=== PATIENT | male | born 1975 | race Caucasian/White ===

== ENCOUNTER 2017-11-27 20:57 | Observation (INO) | payer OTHER ==
[2017-11-27 21:00] VITALS: BMI 23.6
[2017-11-27] MEDS ORDERED: Sodium Chloride 0.9% 1,000 ML IV STA ×2 (21:24→22:04)
[2017-11-27] MEDS ORDERED: Famotidine 20mg/50ml 20 MG in Premixed IV 50 EA IVPB STA (21:28)
[2017-11-27] MEDS ORDERED: Famotidine 20mg/50ml 20 MG/50 ML BAG IVPB ONE (21:45)
[2017-11-27 21:53] LABS: BASO # 0.01 K/mm3 (0.0-2.0); BASO % 0.1 % (0.0-3.0); GRAN # 6.52 (1.4-6.5); GRAN % 85.1 % (50.0-68.0); HEMOGLOBIN 13.7 g/dL (14.0-18.0); LYMPH # 0.5 (1.2-3.4); MEAN CELL VOLUME 85.7 fl (80.0-105.0); MEAN CORPUSCULAR HEMOGLOBIN 30.6 pg (25.0-35.0); MEAN CORPUSCULAR HGB CONC 35.8 g/dl (31.0-37.0); MONO # 0.6 (0.1-0.6); MONO % 7.8 % (1.0-6.0); RBC 4.47 10^6/uL (3.5-6.1); RED CELL DISTRIBUTION WIDTH 12.2 % (11.5-14.5); WHITE BLOOD COUNT 7.7 10^3/ul (4.5-11.0)
[2017-11-27 22:03] LABS: ALB/GLOB RATIO 1.5 (1.1-1.8); ALBUMIN 4.6 g/dL (3.0-4.8); ALT/SGPT 34 U/L (7-56); AST/SGOT 23 U/L (17-59); BLOOD UREA NITROGEN 18 mg/dL (7-21); GFR AFRICAN-AMERICAN > 60; GFR NON-AFRICAN AMERICAN > 60; LIPASE 53 U/L (23-300)
--- NOTE | 2017-11-27 22:03 | ED PDOC ---
Arrival/HPI - General Chief Complaint: Altered Mental Status Time Seen by Provider: 11/27/17 21:24 Historian: Patient - History of Present Illness Narrative History of Present Illness (Text): 11/27/17 22:00 A 42 year old male, with no significant past medical history, presents to the emergency department with a complaint of sudden onset abdominal pimentel, vomiting, diarrhea, headache and photophobia. The patient notes that his symptoms began after he ate a meat dish this afternoon with onions and mushrooms. He notes that the vomitus is non bloody/ non-bilious. The patient denies fevers, chills, dizziness, chest pain, shortness of breath, dyspnea on exertion, cough, back pain, neck pain, urinary/bowel changes, or any other complaint. Time/Duration: Other (Today) Symptom Onset: Sudden Symptom Course: Unchanged Activities at Onset: Rest, Light Context: Home Past Medical History - Provider Review Nursing Documentation Reviewed: Yes - Cardiac Hx Cardiac Disorders: No - Pulmonary Hx Respiratory Disorders: No - Neurological Hx Neurological Disorder: No - HEENT Hx HEENT Disorder: No - Renal Hx Renal Disorder: No - Endocrine/Metabolic Hx Endocrine Disorders: No - Hematological/Oncological Hx Blood Disorders: No - Integumentary Hx Dermatological Disorder: No - Musculoskeletal/Rheumatological Hx Musculoskeletal Disorders: Yes Hx Arthritis: Yes - Gastrointestinal Hx Gastrointestinal Disorders: No - Genitourinary/Gynecological Hx Genitourinary Disorders: No - Psychiatric Hx Psychophysiologic Disorder: Yes Hx Anxiety: Yes (NO MED) Hx Substance Use: No - Anesthesia Hx Anesthesia: Yes Hx Anesthesia Reactions: No Hx Malignant Hyperthermia: No (UNKNOWN) Family/Social History - Physician Review Nursing Documentation Reviewed: Yes Family/Social History: No Known Family HX Smoking Status: Current Some Days Smoker Hx Alcohol Use: No Hx Substance Use: No Allergies/Home Meds Allergies/Adverse Reactions: Allergies No Known Allergies Allergy (Verified 02/26/16 15:56) Home Medications: Home Meds Medication Instructions Recorded Confirmed Aspirin [Ecotrin] 81 mg PO DAILY 07/24/16 11/27/17 Omeprazole 40 mg PO DAILY 07/24/16 11/27/17 Rosuvastatin Calcium [Crestor] 20 mg PO DAILY 07/24/16 11/27/17 Review of Systems - Physician Review All systems were reviewed & negative as marked: Yes - Review of Systems Constitutional: absent: Fevers, Night Sweats Eyes: Photophobia Respiratory: absent: SOB, Cough Cardiovascular: absent: Chest Pain, KEMP Gastrointestinal: Abdominal Pain, Diarrhea, Nausea, Vomiting. absent: Stool Changes Genitourinary Male: absent: Urinary Output Changes Musculoskeletal: absent: Back Pain, Neck Pain Neurological: Headache. absent: Dizziness Physical Exam Vital Signs Reviewed: Yes Vital Signs Temp Pulse Resp BP Pulse Ox 11/27/17 22:17 121 H 17 107/69 98 11/27/17 20:58 100 F H 134 H 20 94/71 L 97 Temperature: Febrile Blood Pressure: Hypotensive Pulse: Tachycardic Respiratory Rate: Normal Appearance: Positive for: Well-Appearing, Non-Toxic, Comfortable Pain Distress: None Mental Status: Positive for: Alert and Oriented X 3 - Systems Exam Head: Present: Atraumatic, Normocephalic Pupils: Present: PERRL Extroacular Muscles: Present: EOMI Conjunctiva: Present: Normal Mouth: Present: Moist Mucous Membranes Neck: Present: Normal Range of Motion Respiratory/Chest: Present: Clear to Auscultation, Good Air Exchange. No: Respiratory Distress, Accessory Muscle Use Cardiovascular: Present: Regular Rate and Rhythm, Normal S1, S2. No: Murmurs Abdomen: No: Tenderness, Distention, Peritoneal Signs Back: Present: Normal Inspection Upper Extremity: Present: Normal Inspection. No: Cyanosis, Edema Lower Extremity: Present: Normal Inspection. No: Edema Neurological: Present: GCS=15, CN II-XII Intact, Speech Normal Skin: Present: Warm, Dry, Normal Color. No: Rashes Psychiatric: Present: Alert, Oriented x 3, Normal Insight, Normal Concentration Medical Decision Making ED Course and Treatment: 11/27/17 22:04 Impression: A 42 year old male presents to the emergency department with complaint of sudden onset abdominal pain, nausea, vomiting, diarrhea, headache and photophobia. Plan: -- Labs -- Tylenol, Zofran, IV Fluids, Pepcid -- Reassess and disposition Progress Notes: Pt continues to have headache and photophobia. Pt had sudden onset of headache less than 6 hours. I will order a ct brain to rule bleed. Endorsed to Dr Elliott to follow up labs, ct head, cxr and reassess. - Lab Interpretations Lab Results: 11/27/17 21:18 11/27/17 21:18 Lab Results 11/27/17 21:18: Sodium 139, Potassium 3.7, Chloride 103, Carbon Dioxide 23, Anion Gap 17, BUN 18, Creatinine 0.9, Est GFR ( Amer) > 60, Est GFR (Non- Af Amer) > 60, Random Glucose 112 H, Calcium 9.0, Magnesium 1.6 L, Total Bilirubin 0.5, AST 23, ALT 34, Alkaline Phosphatase 69, Total Protein 7.6, Albumin 4.6, Globulin 3.0, Albumin/Globulin Ratio 1.5, Lipase 53 11/27/17 21:18: PT 11.9, INR 1.00, APTT 25.0 L 11/27/17 21:18: WBC 7.7 D, RBC 4.47, Hgb 13.7 L, Hct 38.3 L, MCV 85.7, MCH 30.6 , MCHC 35.8, RDW 12.2, Plt Count 200, MPV 9.0, Gran % 85.1 H, Lymph % (Auto) 7.0 L, [place] % (Auto) 7.8 H, Eos % (Auto) 0.0 L, Baso % (Auto) 0.1, Gran # 6.52 H , Lymph # (Auto) 0.5 L, [place] # (Auto) 0.6, Eos # (Auto) 0.0, Baso # (Auto) 0.01 I have reviewed the lab results: Yes - RAD Interpretation Radiology Orders: 11/27/17 22:34 HEAD W/O CONTRAST [CT] Stat - Medication Orders Current Medication Orders: Sodium Chloride (Sodium Chloride 0.9%) 1,000 mls @ 999 mls/hr IV .Q1H1M STA Stop: 11/27/17 23:04 Discontinued Medications Acetaminophen (Tylenol 325mg Tab) 975 mg PO STAT STA Stop: 11/27/17 21:53 Last Admin: 11/27/17 22:06 Dose: 975 mg Sodium Chloride (Sodium Chloride 0.9%) 1,000 mls @ 999 mls/hr IV .Q1H1M STA Stop: 11/27/17 22:24 Last Admin: 11/27/17 21:46 Dose: 999 mls/hr eMAR Start Stop Document 11/27/17 21:46 IT (Rec: 11/27/17 21:46 IT [id number]) Intravenous Solution Start Date 11/27/17 Start Time 21:46 Famotidine 20 mg/ (Miscellaneous) 50 mls @ 100 mls/hr IVPB STAT STA Stop: 11/27/17 21:57 Last Admin: 11/27/17 21:46 Dose: 100 mls/hr eMAR Start Stop Document 11/27/17 21:46 IT (Rec: 11/27/17 21:46 IT [id number]) Intravenous Solution Start Date 11/27/17 Start Time 21:46 Ondansetron HCl (Zofran Inj) 4 mg IVP STAT STA Stop: 11/27/17 21:25 Last Admin: 11/27/17 21:46 Dose: 4 mg IVP Administration Document 11/27/17 21:46 IT (Rec: 11/27/17 21:46 IT [id number]) Charges for Administration # of IVP Administrations 1 - Scribe Statement The provider has reviewed the documentation as recorded by the Jethroiblauren Monge Provider Scribe Attestation: All medical record entries made by the Scribe were at my direction and personally dictated by me. I have reviewed the chart and agree that the record accurately reflects my personal performance of the history, physical exam, medical decision making, and the department course for this patient. I have also personally directed, reviewed, and agree with the discharge instructions and disposition. Disposition/Present on Arrival - Present on Arrival Any Indicators Present on Arrival: No History of DVT/PE: No History of Uncontrolled Diabetes: No Urinary Catheter: No History of Decub. Ulcer: No History Surgical Site Infection Following: None - Disposition Have Diagnosis and Disposition been Completed?: No Diagnosis: Acute gastroenteritis Disposition Time: 22:52 Condition: STABLE Discharge Instructions (ExitCare): Gastroenteritis (DC), Gastroenteritis (GEN) Referrals: Kenan Couch MD [Primary Care Provider] - Follow up with primary Forms: [facility] (formerly [facility]) ([place]ian)
[2017-11-27 22:11] LABS: PROTHROMBIN TIME 11.9 SECONDS (9.4-12.5)
[2017-11-27 23:10] LABS: VENOUS BLOOD GAS BASE EXCESS 1.4 mmol/L (0.0-2.0); VENOUS BLOOD GAS PO2 182 mm/Hg (30-55); VENOUS BLOOD PH 7.46 (7.32-7.43)
--- NOTE | 2017-11-27 23:39 | ED PDOC ---
Physical Exam Vital Signs Temp Pulse Resp BP Pulse Ox 11/27/17 23:49 111 H 17 104/64 98 11/27/17 22:17 121 H 17 107/69 98 11/27/17 20:58 100 F H 134 H 20 94/71 L 97 Medical Decision Making ED Course and Treatment: 11/27/17 23:02 Case endorsed to me by Dr. Espitia. Patient with a history of sudden onset vomiting, headache, and abdominal discomfort. Patient apparently had eaten a meat dish earlier. Patient also with a period of unresponsiveness according to the family. No history of fever. Patient currently states he is feeling better. Denies any abdominal pain or headache currently. Pending CT Head. EXAM: CT Head Without Intravenous Contrast Dictated and Authenticated by: Juan Carlos Stevenson MD 11/27/2017 11:20 PM IMPRESSION: No significant injury noted to the patient's head. No acute intracranial findings are seen. 11/27/17 23:30 CXR Impression: As read by me, no acute process. 11/27/17 23:49 Patient improved but still mild tachycardia.Case discussed with Supervisor [employer] and Dr. Kirkland who is aware and agrees with the plan to admit to tele observation. Accepts patient into hospitalist service. - Lab Interpretations Lab Results: 11/27/17 21:18 11/27/17 21:18 Lab Results 11/27/17 22:54: pO2 182 H, VBG pH 7.46 H, VBG pCO2 35.0 L, VBG HCO3 24.9, VBG Total CO2 26.0, VBG O2 Sat (Calc) 99.8 H, VBG Base Excess 1.4, VBG Potassium 4.0 , Glucose 113 H, Lactate 2.0, FiO2 21.0, Sodium 138.0, Chloride 105.0, Venous Blood Potassium 4.0 11/27/17 21:18: Sodium 139, Potassium 3.7, Chloride 103, Carbon Dioxide 23, Anion Gap 17, BUN 18, Creatinine 0.9, Est GFR ( Amer) > 60, Est GFR (Non- Af Amer) > 60, Random Glucose 112 H, Calcium 9.0, Magnesium 1.6 L, Total Bilirubin 0.5, AST 23, ALT 34, Alkaline Phosphatase 69, Total Protein 7.6, Albumin 4.6, Globulin 3.0, Albumin/Globulin Ratio 1.5, Lipase 53 11/27/17 21:18: PT 11.9, INR 1.00, APTT 25.0 L 11/27/17 21:18: WBC 7.7 D, RBC 4.47, Hgb 13.7 L, Hct 38.3 L, MCV 85.7, MCH 30.6 , MCHC 35.8, RDW 12.2, Plt Count 200, MPV 9.0, Gran % 85.1 H, Lymph % (Auto) 7.0 L, [place] % (Auto) 7.8 H, Eos % (Auto) 0.0 L, Baso % (Auto) 0.1, Gran # 6.52 H , Lymph # (Auto) 0.5 L, [place] # (Auto) 0.6, Eos # (Auto) 0.0, Baso # (Auto) 0.01 - RAD Interpretation Radiology Orders: 11/27/17 22:34 HEAD W/O CONTRAST [CT] Stat 11/27/17 22:54 CHEST PORTABLE [RAD] Stat - Medication Orders Current Medication Orders: Discontinued Medications Acetaminophen (Tylenol 325mg Tab) 975 mg PO STAT STA Stop: 11/27/17 21:53 Last Admin: 11/27/17 22:06 Dose: 975 mg Sodium Chloride (Sodium Chloride 0.9%) 1,000 mls @ 999 mls/hr IV .Q1H1M STA Stop: 11/27/17 22:24 Last Admin: 11/27/17 21:46 Dose: 999 mls/hr eMAR Start Stop Document 11/27/17 21:46 IT (Rec: 11/27/17 21:46 IT [id number]) Intravenous Solution Start Date 11/27/17 Start Time 21:46 Famotidine 20 mg/ (Miscellaneous) 50 mls @ 100 mls/hr IVPB STAT STA Stop: 11/27/17 21:57 Last Admin: 11/27/17 21:46 Dose: 100 mls/hr eMAR Start Stop Document 11/27/17 21:46 IT (Rec: 11/27/17 21:46 IT [id number]) Intravenous Solution Start Date 11/27/17 Start Time 21:46 Sodium Chloride (Sodium Chloride 0.9%) 1,000 mls @ 999 mls/hr IV .Q1H1M STA Stop: 11/27/17 23:04 Last Admin: 11/27/17 23:05 Dose: 999 mls/hr eMAR Start Stop Document 11/27/17 23:05 IT (Rec: 11/27/17 23:05 IT [id number]) Intravenous Solution Start Date 11/27/17 Start Time 23:05 Ondansetron HCl (Zofran Inj) 4 mg IVP STAT STA Stop: 11/27/17 21:25 Last Admin: 11/27/17 21:46 Dose: 4 mg IVP Administration Document 11/27/17 21:46 IT (Rec: 11/27/17 21:46 IT [id number]) Charges for Administration # of IVP Administrations 1 - Scribe Statement The provider has reviewed the documentation as recorded by the Ira Hoffman Provider Scribe Attestation: All medical record entries made by the Scribe were at my direction and personally dictated by me. I have reviewed the chart and agree that the record accurately reflects my personal performance of the history, physical exam, medical decision making, and the department course for this patient. I have also personally directed, reviewed, and agree with the discharge instructions and disposition. Disposition/Present on Arrival - Present on Arrival Any Indicators Present on Arrival: No History of DVT/PE: No History of Uncontrolled Diabetes: No Urinary Catheter: No History of Decub. Ulcer: No History Surgical Site Infection Following: None - Disposition Have Diagnosis and Disposition been Completed?: Yes Diagnosis: Acute gastroenteritis, Syncope, Tachycardia Disposition: HOSPITALIZED Disposition Time: 23:52 Patient Problems: Current Active Problems Problem Status Onset Acute gastroenteritis Acute Syncope Acute Tachycardia Acute Condition: STABLE
[2017-11-27 23:51] LABS: URINE BILIRUBIN NEGATIVE (NEGATIVE); URINE BLOOD NEGATIVE (NEGATIVE); URINE GLUCOSE (UA) NEGATIVE (NEGATIVE); URINE LEUKOCYTE ESTERASE NEGATIVE Leu/uL (NEGATIVE); URINE PROTEIN NEGATIVE mg/dL (<30 mg/dL); URINE UROBILINOGEN 0.2 E.U./dL (<1 E.U./dL)
[2017-11-27 23:56] LABS: URINE APPEARANCE CLEAR (CLEAR); URINE COLOR YELLOW (YELLOW)
[2017-11-28] MEDS ORDERED: Magnesium Sulfate 1 gm in D5W 1 GM/100 ML BAG IVPB ONE (00:14)
[2017-11-28 01:25] LABS: BARBITURATES, UR NEGATIVE (NEGATIVE); BENZODIAZEPINES, UR NEGATIVE (NEGATIVE); OPIATES, UR NEGATIVE (NEGATIVE); PHENCYCLIDINE, UR NEGATIVE (NEGATIVE)
--- NOTE | 2017-11-28 02:26 | CP.PCM.HP ---
<Jean Pierre Rodríguez - Last Filed: 11/28/17 03:48> History of Present Illness - History of Present Illness History of Present Illness: Jean Pierre Rodríguez DO, PGY-1 Hospitalist Admission History and Physical for Dr. Kirkland CC: abdominal pain with nausea/vomiting HPI: Mr. Amezquita is a 42 year old male with PMH of HLD, chronic gastritis (EGD with biopsy in July 2016 who presented to ED for abdominal pain with nausea/ vomiting for the past day. Per ED note, patient's family states that he had a period of unresponsiveness this afternoon. Prior to this, he felt very nauseated and vomited at least twice. He also admits to feeling hot prior to the period of unresponsiveness. His family denies that he had any sudden jerking movements or bowel/bladder incontinence during this episode. He was found to have continued sinus tachycardia in the ED. Patient admits to having a worsening headache that is sensitive to light but states that this photosensitivity is not a new issue. He also endorses chills, neck pain. He denies fever, night sweats, chest pain, SOB, cough. Patient has a history of chronic gastritis with EGD done in July 2016. This is managed with omeprazole. PMD: Dr. Kenan Couch MD PMH: HLD, chronic gastritis PSH: had prostatectomy in [place] for enlarged prostate, EGD for chronic gastritis in July 2016 Allergies: NKDA Fam Hx: mother had cancer Home medications: Crestor 20 daily, Aspirin 81 daily, omeprazole 40 mg daily Soc Hx: Current some day smoker, denies alcohol or drug use. Currently works at a gas station Present on Admission - Present on Admission Any Indicators Present on Admission: No History of DVT/PE: No History of Uncontrolled Diabetes: No Urinary Catheter: No Decubitus Ulcer Present: No Review of Systems - Review of Systems Review of Systems: A 12 point ROS was reviewed with patient and negative except as stated in HPI Past Patient History - Past Social History Smoking Status: Current Some Days Smoker - CARDIAC Hx Cardiac Disorders: No - PULMONARY Hx Respiratory Disorders: No - NEUROLOGICAL Hx Neurological Disorder: No - HEENT Hx HEENT Problems: No - RENAL Hx Chronic Kidney Disease: No - ENDOCRINE/METABOLIC Hx Endocrine Disorders: No - HEMATOLOGICAL/ONCOLOGICAL Hx Blood Disorders: No - INTEGUMENTARY Hx Dermatological Problems: No - MUSCULOSKELETAL/RHEUMATOLOGICAL Hx Musculoskeletal Disorders: Yes Hx Arthritis: Yes - GASTROINTESTINAL Hx Gastrointestinal Disorders: No - GENITOURINARY/GYNECOLOGICAL Hx Genitourinary Disorders: No - PSYCHIATRIC Hx Psychophysiologic Disorder: Yes Hx Anxiety: Yes (NO MED) Hx Substance Use: No - SURGICAL HISTORY Hx Surgeries: Yes Hx Herniorrhaphy: Yes (BILATERAL L/R INGUINAL HERNIA) - ANESTHESIA Hx Anesthesia: Yes Hx Anesthesia Reactions: No Hx Malignant Hyperthermia: No (UNKNOWN) Meds Allergies/Adverse Reactions: Allergies Allergy/AdvReac Type Severity Reaction Status Date / Time No Known Allergies Allergy Verified 02/26/16 15:56 Physical Exam - Constitutional Additional comments: In general, Mr. Amezquita appears uncomfortable, but is a/o x 3 - Head Exam Head Exam: ATRAUMATIC, NORMAL INSPECTION, NORMOCEPHALIC - Eye Exam Eye Exam: Normal appearance, PERRL - ENT Exam ENT Exam: Mucous Membranes Moist - Neck Exam Neck exam: Positive for: Tenderness. Negative for: Lymphadenopathy, Thyromegaly Additional comments: Negative Kernig sign but tenderness to palpation - Respiratory Exam Respiratory Exam: Clear to Auscultation Bilateral, NORMAL BREATHING PATTERN. absent: Accessory Muscle Use, Chest Wall Tenderness, Rales, Rhonchi, Wheezes - Cardiovascular Exam Cardiovascular Exam: Tachycardia, +S1, +S2. absent: Diastolic murmur, Gallop, Rubs, Systolic Murmur - GI/Abdominal Exam GI & Abdominal Exam: Tenderness. absent: Guarding, Organomegaly, Rebound Additional comments: Tenderness to palpation greatest in left lower and right lower quadrant - Extremities Exam Extremities exam: Positive for: normal inspection, pedal pulses present. Negative for: calf tenderness, pedal edema, tenderness - Back Exam Back exam: NORMAL INSPECTION - Neurological Exam Neurological exam: Alert, CN II-XII Intact, Oriented x3 - Psychiatric Exam Psychiatric exam: Normal Affect, Normal Mood - Skin Skin Exam: Dry, Intact, Normal Color, Warm Results - Vital Signs Recent Vital Signs: Last Vital Signs Temp 100.9 F H 11/28/17 01:52 Pulse 98 H 11/28/17 01:52 Resp 18 11/28/17 01:52 BP 99/69 L 11/28/17 01:52 Pulse Ox 98 11/28/17 01:52 - Labs Result Diagrams: 11/27/17 21:18 11/27/17 21:18 Assessment & Plan - Assessment and Plan (Free Text) Assessment: Mr. Amezquita is a 42 year old male with PMH of HLD admitted for abdominal pain with nausea/vomiting. In ED patient noted to be lethargic and family mentions that he had an episode of unresponsiveness, but this could be a misunderstanding based on language barrier. Patient's main complaint is his abdominal pain and states that his photosensitivity is chronic. Headache likely due to nausea/dehydration. 1. Sepsis -Likely cause is GI related -GI, ID consulted -Start Cipro/flagyl -Protonix 40 mg IVP daily -Carafate 1 gm PO QID -Blood and urine cultures drawn -Tylenol PRN fevers -Zofran PRN nausea/vomiting -Maintain normothermia 2. Altered mental status/lethargy -Likely cause is sepsis vs dehydration -Continue NS @ 125 cc/hr -Cardiology and neurology consulted to r/o other etiologies -Neuro checks Q2h -At this time, meningitis is unlikely etiology, will await neuro recs -Will monitor electrolyte abnormalities and replete as necessary 3. Hx of HLD -Continue Crestor GI/DVT Prophylaxis: on protonix, SCDs Case and plan were discussed in detail with attending Dr. Marita Rodríguez, DO IM Resident PGY-1 <Kaylee Kirkland - Last Filed: 11/28/17 04:49> Results - Vital Signs Recent Vital Signs: Last Vital Signs Temp 99.3 F 11/28/17 02:15 Pulse 101 H 11/28/17 02:15 Resp 18 11/28/17 02:15 BP 105/63 11/28/17 02:15 Pulse Ox 98 11/28/17 01:52 - Labs Result Diagrams: 11/27/17 21:18 11/27/17 21:18 Labs: Laboratory Results - last 24 hr 11/28/17 03:00 pO2 33 VBG pH 7.39 VBG pCO2 46.0 VBG HCO3 27.8 VBG Total CO2 29.2 H VBG O2 Sat (Calc) 71.4 H VBG Base Excess 2.2 H VBG Potassium 3.6 Sodium 138.0 Chloride 106.0 Glucose 105 Lactate 0.9 FiO2 21.0 Venous Blood Potassium 3.6 Attending/Attestation - Attestation I have personally seen and examined this patient.: Yes I have fully participated in the care of the patient.: Yes I have reviewed all pertinent clinical information: Yes Notes (Text): 11/28/17 04:48 Patient was seen when he was in bed # 7 in the ER . Agree with history,physical examination, assessment and plan.
[2017-11-28 03:11] LABS: VENOUS BLOOD GAS BASE EXCESS 2.2 mmol/L (0.0-2.0); VENOUS BLOOD GAS PO2 33 mm/Hg (30-55); VENOUS BLOOD PH 7.39 (7.32-7.43)
[2017-11-28] MEDS: Sodium Chloride 0.9% 1,000 ML IV SCH ×4 (03:12→17:27)
[2017-11-28] MEDS ORDERED: Potassium Chloride 20 mEq ER Tab PO ONE (03:44)
[2017-11-28] MEDS ORDERED: Pantoprazole 40 mg EC Tab PO SCH ×2 (06:00)
[2017-11-28] MEDS: Sucralfate 1 gm/10 ml Oral Susp UD PO SCH ×4 (06:02→22:08)
[2017-11-28] MEDS: metroNIDAZOLE IV 500 mg/100 ml 500 MG/100 ML BAG IVPB SCH ×3 (06:02→22:08)
[2017-11-28 07:27] LABS: BASO # 0.01 K/mm3 (0.0-2.0); BASO % 0.2 % (0.0-3.0); GRAN # 4.17 (1.4-6.5); HEMOGLOBIN 12.3 g/dL (14.0-18.0); LYMPH # 0.8 (1.2-3.4); MEAN CORPUSCULAR HEMOGLOBIN 29.8 pg (25.0-35.0); MEAN CORPUSCULAR HGB CONC 34.6 g/dl (31.0-37.0); MEAN PLATELET VOLUME 8.9 fl (7.0-11.0); MONO # 0.4 (0.1-0.6); MONO % 7.8 % (1.0-6.0); RBC 4.13 10^6/uL (3.5-6.1); RED CELL DISTRIBUTION WIDTH 12.4 % (11.5-14.5); WHITE BLOOD COUNT 5.4 10^3/ul (4.5-11.0)
[2017-11-28] MEDS: cefTRIAXone 2 GM IN NS 2 GM/100 ML BAG IVPB SCH (07:54)
[2017-11-28 07:55] LABS: LDL CHOLESTEROL 98 mg/dL (0-129)
[2017-11-28 08:02] LABS: ALB/GLOB RATIO 1.3 (1.1-1.8); ALBUMIN 3.8 g/dL (3.0-4.8); ALT/SGPT 34 U/L (7-56); AST/SGOT 20 U/L (17-59); BLOOD UREA NITROGEN 13 mg/dL (7-21); CALCIUM 8.6 mg/dL (8.4-10.5); GFR AFRICAN-AMERICAN > 60; GFR NON-AFRICAN AMERICAN > 60; HDL CHOLESTEROL 33 mg/dL (29-60)
--- NOTE | 2017-11-28 09:01 | RAD ---
Date of service: 11/27/2017 HISTORY: acute gastroenteritis COMPARISON: 02/26/2016 FINDINGS: LUNGS: No active pulmonary disease. PLEURA: No significant pleural effusion identified, no pneumothorax apparent. CARDIOVASCULAR: Normal. OSSEOUS STRUCTURES: No significant abnormalities. VISUALIZED UPPER ABDOMEN: Normal. OTHER FINDINGS: None. IMPRESSION: No active disease.
--- NOTE | 2017-11-28 09:18 | CT ---
Date of service: 11/28/2017 PROCEDURE: CT Abdomen and Pelvis without intravenous contrast HISTORY: abdominal pain, hx of gastritis COMPARISON: None. TECHNIQUE: Without contrast. Contrast dose: Radiation dose: Total exam DLP = 450 mGy-cm. This CT exam was performed using one or more of the following dose reduction techniques: Automated exposure control, adjustment of the mA and/or kV according to patient size, and/or use of iterative reconstruction technique. FINDINGS: LOWER THORAX: Unremarkable. LIVER: Unremarkable. No gross lesion or ductal dilatation. GALLBLADDER AND BILE DUCTS: Unremarkable. PANCREAS: Unremarkable. No gross lesion or ductal dilatation. SPLEEN: Unremarkable. ADRENALS: Unremarkable. No mass. KIDNEYS AND URETERS: Unremarkable. No hydronephrosis. No solid mass. VASCULATURE: Unremarkable. No aortic aneurysm. BOWEL: Unremarkable. No obstruction. No gross mural thickening. APPENDIX: Unremarkable. Normal appendix. PERITONEUM: Unremarkable. No free fluid. No free air. LYMPH NODES: Unremarkable. No enlarged lymph nodes. BLADDER: Unremarkable. REPRODUCTIVE: Unremarkable. BONES: No acute fracture. OTHER FINDINGS: None. IMPRESSION: No acute intra-abdominal findings
--- NOTE | 2017-11-28 09:19 | CT ---
Date of service: 11/27/2017 PROCEDURE: CT HEAD WITHOUT CONTRAST. HISTORY: Headache COMPARISON: None available. TECHNIQUE: Axial computed tomography images were obtained through the head/brain without intravenous contrast. Radiation dose: Total exam DLP = 923 mGy-cm. This CT exam was performed using one or more of the following dose reduction techniques: Automated exposure control, adjustment of the mA and/or kV according to patient size, and/or use of iterative reconstruction technique. FINDINGS: HEMORRHAGE: No intracranial hemorrhage. BRAIN: No mass effect or edema. No atrophy or chronic microvascular ischemic changes. VENTRICLES: Unremarkable. No hydrocephalus. CALVARIUM: Unremarkable. PARANASAL SINUSES: Unremarkable as visualized. No significant inflammatory changes. MASTOID AIR CELLS: Unremarkable as visualized. No inflammatory changes. OTHER FINDINGS: The report concurs with the preliminary [facility] report IMPRESSION: No acute findings
[2017-11-28] MEDS ORDERED: Ciprofloxacin 200mg/100ml D5W 100 ML IVPB SCH (10:00)
[2017-11-28] MEDS ORDERED: Enoxaparin 40 mg Syringe SC SCH ×2 (10:00)
--- NOTE | 2017-11-28 12:54 | CON ---
DATE: 11/28/2017 CONSULTATION IN GASTROENTEROLOGY REQUESTING PHYSICIAN: Lionel Sam MD. REASON FOR CONSULT: I have been asked to see this 42-year-old male for abdominal pain, nausea and vomiting. The patient came to the hospital with 1 day of diffuse abdominal pain, nausea and vomiting. The patient had a moment of unresponsiveness after feeling hot just prior to the moment of unresponsiveness. The patient also complains of headache and nonproductive cough. The patient had an upper endoscopy back in July [address] Dugan for abdominal pain and vomiting. This showed diffuse gastritis. He denies any recent travel or ingestion of any unusual foods. PAST MEDICAL HISTORY: Notable for diffuse gastritis, hyperlipidemia. PAST SURGICAL HISTORY: Notable for prostatectomy. SOCIAL HISTORY: He smokes less than a half pack of cigarettes per day. He denies alcohol use. He works at a gas station. FAMILY HISTORY: Noncontributory. MEDICATIONS AT HOME: Include Crestor, omeprazole and aspirin. REVIEW OF SYSTEMS: Fourteen-point review of systems is notable for abdominal pain, nausea and vomiting for 1 day, moment of unresponsiveness associated with feeling hot, most likely a vagovagal episode. PHYSICAL EXAMINATION: GENERAL: Well-developed male, lying in bed, in no acute distress. VITAL SIGNS: Reveal temperature of 100.7, blood pressure of 99/62, heart rate of 116. HEENT: Reveals sclerae to be white. Conjunctivae pale. NECK: Supple. CHEST: Reveals lungs to be clear. HEART: Reveals regular rate and rhythm. ABDOMEN: Soft. Mild diffuse tenderness, sparing the right upper quadrant. EXTREMITIES: Show no edema. LABORATORY DATA: Reveal white blood cell count of 5.4, hemoglobin 12.3. Electrolytes are normal. Tox screen is negative. CT scan of the abdomen and pelvis is negative for any acute findings. IMPRESSION: Probable gastroenteritis with viral syndrome with low-grade fever, normal white blood cell count, headache and nonproductive cough. RECOMMENDATIONS: I will start the patient on a clear liquid diet. No plans for endoscopy at this time. No other workup planned. Continue PPI and Zofran. Vahid Flanagan MD
--- NOTE | 2017-11-28 14:36 | CP.PCM.CON ---
History of Present Illness - History of Present Illness History of Present Illness: 42 year old male with PMH of dyslipidemia, chronic gastritis, S/P prostatectomy was brought in [place] [facility] [place] of abdominal discomfort and pain with nausea and vomiting as well as fever and chills for the past 1-2 days. He is also having frontal headaches exacerbated by movements but no neck pain or stiffness. He denies photophobia, no blurring of vision. He does not have rhinorrhea or sore throat but has dry cough. He denies shortness of breath, no chest pain, no palpitations, no diarrhea, no dysuria. The patient denies any recent travel outside of [place] in the past 3 months, denies going to wooded areas, denies animal contacts, denies insect or tick bites. His last travel outside of [place] was in 2017 to [place]. Infectious Diseases consult is requested to further evaluate and manage. Review of Systems - Review of Systems All systems: reviewed and no additional remarkable complaints except (as per HPI ) Past Patient History - Past Social History Smoking Status: Current Some Days Smoker - CARDIAC Hx Cardiac Disorders: No - PULMONARY Hx Respiratory Disorders: No - NEUROLOGICAL Hx Neurological Disorder: No - HEENT Hx HEENT Problems: No - RENAL Hx Chronic Kidney Disease: No - ENDOCRINE/METABOLIC Hx Endocrine Disorders: No - HEMATOLOGICAL/ONCOLOGICAL Hx Blood Disorders: No - INTEGUMENTARY Hx Dermatological Problems: No - MUSCULOSKELETAL/RHEUMATOLOGICAL Hx Musculoskeletal Disorders: Yes Hx Arthritis: Yes - GASTROINTESTINAL Hx Gastrointestinal Disorders: No - GENITOURINARY/GYNECOLOGICAL Hx Genitourinary Disorders: No - PSYCHIATRIC Hx Psychophysiologic Disorder: Yes Hx Anxiety: Yes (NO MED) Hx Substance Use: No - SURGICAL HISTORY Hx Surgeries: Yes Hx Herniorrhaphy: Yes (BILATERAL L/R INGUINAL HERNIA) - ANESTHESIA Hx Anesthesia: Yes Hx Anesthesia Reactions: No Hx Malignant Hyperthermia: No (UNKNOWN) Meds Allergies/Adverse Reactions: Allergies Allergy/AdvReac Type Severity Reaction Status Date / Time No Known Allergies Allergy Verified 02/26/16 15:56 - Medications Medications: Current Medications Acetaminophen (Tylenol 325mg Tab) 650 mg PO Q6H PRN PRN Reason: Pain, moderate (4-7) Last Admin: 11/28/17 02:22 Dose: 650 mg Aspirin (Ecotrin) 81 mg PO DAILY [facility] Atorvastatin Calcium (Lipitor) 80 mg PO DIN [facility] Enoxaparin Sodium (Lovenox) 40 mg SC DAILY [facility] PRN Reason: Protocol Sodium Chloride (Sodium Chloride 0.9%) 1,000 mls @ 125 mls/hr IV .Q8H [facility] Last Admin: 11/28/17 03:12 Dose: 125 mls/hr Ciprofloxacin (Cipro 200mg/100ml D5w) 100 mls @ 67 mls/hr IVPB Q12 [facility] PRN Reason: Protocol Stop: 11/28/17 11:30 Metronidazole (Flagyl) 500 mg in 100 mls @ 100 mls/hr IVPB Q8 [facility] PRN Reason: Protocol Last Admin: 11/28/17 06:02 Dose: 100 mls/hr Ondansetron HCl (Zofran Inj) 4 mg IVP Q4H PRN PRN Reason: Nausea/Vomiting Pantoprazole Sodium (Protonix Inj) 40 mg IVP DAILY [facility] Sucralfate (Carafate Oral Susp) 1 gm PO 0630,1130,1630,2200 [facility] Last Admin: 11/28/17 06:02 Dose: 1 gm Physical Exam - Constitutional Appears: Non-toxic, Chronically Ill - Head Exam Head Exam: NORMAL INSPECTION - ENT Exam ENT Exam: Mucous Membranes Moist - Neck Exam Neck exam: Negative for: Lymphadenopathy, Meningismus - Respiratory Exam Respiratory Exam: Decreased Breath Sounds. absent: Rales, Rhonchi - Cardiovascular Exam Cardiovascular Exam: +S1, +S2 - GI/Abdominal Exam GI & Abdominal Exam: Guarding, Soft, Tenderness (diffuse). absent: Diminished Bowel Sounds, Distended, Rebound, Rigid Results - Vital Signs Recent Vital Signs: Last Vital Signs Temp 99.3 F 11/28/17 02:15 Pulse 101 H 11/28/17 02:15 Resp 18 11/28/17 02:15 BP 105/63 11/28/17 02:15 Pulse Ox 98 11/28/17 01:52 - Labs Result Diagrams: 11/28/17 06:30 11/28/17 06:45 Labs: Laboratory Results - last 24 hr 11/28/17 03:00 pO2 33 VBG pH 7.39 VBG pCO2 46.0 VBG HCO3 27.8 VBG Total CO2 29.2 H VBG O2 Sat (Calc) 71.4 H VBG Base Excess 2.2 H VBG Potassium 3.6 Sodium 138.0 Chloride 106.0 Glucose 105 Lactate 0.9 FiO2 21.0 Venous Blood Potassium 3.6 Assessment & Plan - Assessment and Plan (Free Text) Plan: Assessment Consider sepsis due to acute systemic viral syndrome with probable acute gastroenteritis, aseptic meningeal involvement (meningitis) but unlikely bacterial meningitis since WBC count is not elevated and there are no Brudzinski or Kernig sign dyslipidemia chronic gastritis S/P prostatectomy Plan Will give a dose of IV Vancomycin and we have started Rocephin and Flagyl pending blood cx, urine cx; reviewed CXR and CT head which are negative discussed with Dr. Flanagan and Dr. Reyes and we agree that this is probably acute viral syndrome will monitor fever curve and clinical response
[2017-11-28] MEDS ORDERED: Vancomycin 2 GM in Sodium Chloride 0.9% 500 ML IVPB ONE (14:37)
--- NOTE | 2017-11-28 17:06 | CARD ---
APPROVED REPORT Date of service: 11/27/2017 EKG Measurement Heart [id number] <Conclusion> Sinus tachycardia Otherwise normal ECG
--- NOTE | 2017-11-28 20:33 | CON ---
DATE: 11/28/2017 REQUESTING PHYSICIAN: Martha Solis MD REASON FOR CONSULTATION: Syncope. HISTORY OF PRESENT ILLNESS: This is a 42-year-old man who was brought to the emergency room for evaluation of loss of consciousness. He has been bothered by abdominal pain, nausea and vomiting for the past 24 hours. He apparently had a transient loss of consciousness in the presence of his family. He had been nauseated and vomiting several times before this occurred. Upon awakening, he was fully cognizant of his surroundings. According to the chart, the family noted no evidence of seizure-like activities. PAST MEDICAL HISTORY: Notable for chronic gastritis as well as prior prostate surgery. CURRENT MEDICATIONS: Aspirin, Crestor, and omeprazole. ALLERGIES: None. SOCIAL HISTORY: He smokes intermittently. He denies alcohol use. He works as a gas jockey. FAMILY HISTORY: Mother from unspecified cancer. No family history of premature heart disease. REVIEW OF SYSTEMS: A 10-point review of systems is otherwise unremarkable. PHYSICAL EXAMINATION: GENERAL: He is a middle-aged man, appears comfortable at rest. VITAL SIGNS: His blood pressure of 100/60 with a pulse of 110 and sinus, respirations are 14. He is afebrile. HEENT: Normocephalic, atraumatic. NECK: Supple. No JVD noted. CHEST: Few scattered rhonchi heard. HEART: PMI normal position and rhythm is mildly tachycardic. Soft systolic murmur is present at eft sternal border. ABDOMEN: Soft and nontender with normoactive bowel sounds. EXTREMITIES: No clubbing, cyanosis, edema. SKIN: Warm and dry. PSYCHIATRIC: Normal mood and affect. NEUROLOGIC: Alert and oriented x3. No gross motor or sensory deficits appreciable. DIAGNOSTIC DATA: White count 5.4, hemoglobin and hematocrit 12.3 and 35.5 with platelet count 186,000. PT/PTT are normal. D-dimer is negative. Potassium 4.0, BUN and creatinine of 13 and 0.9. Troponin is negative. TSH 0.89. Cholesterol 158 with an LDL of 98 and HDL of 33, triglycerides were 89. Electrocardiogram reveals sinus tachycardia with nonspecific ST-T abnormalities. IMPRESSION: 1. Recent syncope likely vasovagal in nature. No evidence of other significant pathology on examination. 2. History of asthma. RECOMMENDATIONS: Telemetry monitoring should be maintained for 24 hours. Bronchodilator therapy is advised. An echocardiogram should be obtained. A screening stress test would be advisable as well. Thank you for this consultation. We will be happy to follow along as needed. Ian Baptiste MD
[2017-11-29] MEDS: metroNIDAZOLE IV 500 mg/100 ml 500 MG/100 ML BAG IVPB SCH ×2 (06:22→14:32)
[2017-11-29] MEDS: Sucralfate 1 gm/10 ml Oral Susp UD PO SCH ×3 (06:23→17:00)
[2017-11-29 06:57] VITALS: O2SAT 97
[2017-11-29 08:09] LABS: BASO # 0.01 K/mm3 (0.0-2.0); BASO % 0.2 % (0.0-3.0); EOS % 0.5 % (1.5-5.0); GRAN # 2.02 (1.4-6.5); GRAN % 49.5 % (50.0-68.0); HEMOGLOBIN 12.7 g/dL (14.0-18.0); LYMPH # 1.6 (1.2-3.4); MEAN CELL VOLUME 86.6 fl (80.0-105.0); MEAN CORPUSCULAR HEMOGLOBIN 30.3 pg (25.0-35.0); MEAN PLATELET VOLUME 8.6 fl (7.0-11.0); MONO # 0.5 (0.1-0.6); MONO % 11.8 % (1.0-6.0); RBC 4.19 10^6/uL (3.5-6.1); RED CELL DISTRIBUTION WIDTH 12.4 % (11.5-14.5); WHITE BLOOD COUNT 4.1 10^3/ul (4.5-11.0)
[2017-11-29 08:33] LABS: ALB/GLOB RATIO 1.4 (1.1-1.8); ALBUMIN 3.7 g/dL (3.0-4.8); ALT/SGPT 28 U/L (7-56); AST/SGOT 17 U/L (17-59); BLOOD UREA NITROGEN 8 mg/dL (7-21); CALCIUM 9.1 mg/dL (8.4-10.5); GFR AFRICAN-AMERICAN > 60; GFR NON-AFRICAN AMERICAN > 60
--- NOTE | 2017-11-29 12:12 | PN ---
DATE: 11/29/2017 SUBJECTIVE: The patient is lying in bed. He is tolerating full liquid diet. He feels better. He denies any further abdominal pain, nausea or vomiting. He denies any further fevers or chills. Last fever was 100.9 36 hours ago. PHYSICAL EXAMINATION: VITAL SIGNS: This morning, temperature of 98.7, blood pressure of 106/72, heart rate of 88. HEENT: Reveal sclerae to be white and conjunctivae pink. NECK: Supple. CHEST: Reveal lungs to be clear. HEART: Reveals a regular rate and rhythm. ABDOMEN: Soft, nontender. EXTREMITIES: Show no edema. LABORATORY DATA: Reveal white blood cell count 4.1, hemoglobin 12.7. Chemistries reveal CRP of 37.2, procalcitonin of 0.51, both of which are elevated. Electrolytes are normal.. Blood cultures are negative. MEDICATIONS: Include sucralfate, Flagyl, atorvastatin, pantoprazole, ceftriaxone, acetaminophen and ondansetron. IMPRESSION: A 42-year-old male with probable gastroenteritis and viral syndrome. His gastrointestinal symptoms have markedly improved without any further abdominal pain or vomiting. All blood cultures are negative. RECOMMENDATIONS: 1. We will advance to a low-fat lactose-free diet. 2. Continue PPI and sucralfate. He is stable from GI standpoint. Vahid Flanagan MD
[2017-11-29] MEDS: Sodium Chloride 0.9% 1,000 ML IV SCH (12:19)
[2017-11-29] MEDS: cefTRIAXone 2 GM IN NS 2 GM/100 ML BAG IVPB SCH (12:19)
[2017-11-29 12:51] VITALS: RESP 20
--- NOTE | 2017-11-29 14:23 | CP.PCM.PN ---
Subjective - Date & Time of Evaluation Date of Evaluation: 11/29/17 Time of Evaluation: 10:30 - Subjective Subjective: Patient's headache and abdominal pain have resolved, no more fevers, cough is improved as well, no diarrhea. Objective - Vital Signs/Intake and Output Vital Signs (last 24 hours): Temp Pulse Resp BP Pulse Ox 98.7 F 88 21 106/72 97 11/29/17 06:00 11/29/17 06:00 11/29/17 06:00 11/29/17 06:00 11/29/17 06:00 - Medications Medications: Current Medications Acetaminophen (Tylenol 325mg Tab) 650 mg PO Q6H PRN PRN Reason: Pain, moderate (4-7) Last Admin: 11/28/17 02:22 Dose: 650 mg Acetaminophen (Tylenol 325mg Tab) 650 mg PO Q6H PRN PRN Reason: Fever >100.4 F Last Admin: 11/28/17 10:04 Dose: 650 mg Atorvastatin Calcium (Lipitor) 80 mg PO DIN [facility] Last Admin: 11/28/17 17:26 Dose: 80 mg Metronidazole (Flagyl) 500 mg in 100 mls @ 100 mls/hr IVPB Q8 [facility] PRN Reason: Protocol Last Admin: 11/29/17 06:22 Dose: 100 mls/hr Ceftriaxone Sodium (Rocephin 2 Gm Ivpb) 2 gm in 100 mls @ 100 mls/hr IVPB DAILY [facility] PRN Reason: Protocol Last Admin: 11/28/17 07:54 Dose: 100 mls/hr Ondansetron HCl (Zofran Inj) 4 mg IVP Q4H PRN PRN Reason: Nausea/Vomiting Pantoprazole Sodium (Protonix Inj) 40 mg IVP DAILY [facility] Last Admin: 11/28/17 10:05 Dose: 40 mg Sucralfate (Carafate Oral Susp) 1 gm PO 0630,1130,1630,2200 [facility] Last Admin: 11/29/17 06:23 Dose: 1 gm - Labs Labs: PT 11.9 SECONDS (9.4-12.5) 11/27/17 21:18 INR 1.00 (0.93-1.08) 11/27/17 21:18 APTT 25.0 Seconds (25.1-36.5) L 11/27/17 21:18 - Constitutional Appears: Non-toxic - Head Exam Head Exam: NORMAL INSPECTION - ENT Exam ENT Exam: Mucous Membranes Moist - Neck Exam Neck Exam: absent: Lymphadenopathy, Meningismus - Respiratory Exam Respiratory Exam: absent: Rales - Cardiovascular Exam Cardiovascular Exam: +S1, +S2 - GI/Abdominal Exam GI & Abdominal Exam: Soft. absent: Tenderness Assessment and Plan - Assessment and Plan (Free Text) Plan: Assessment Consider sepsis due to acute systemic viral syndrome with probable acute gastroenteritis, aseptic meningeal involvement (meningitis) but unlikely bacterial meningitis since WBC count is not elevated and there are no Brudzinski or Kernig sign - clinically improving dyslipidemia chronic gastritis S/P prostatectomy Plan given a dose of IV Vancomycin and on Rocephin and Flagyl day 2 - blood cx are negative; reviewed CXR and CT head which are negative discussed with Dr. Flanagan and Dr. Reyes and we agree that this is probably acute viral syndrome we can change antibiotics to PO Vantin and PO Doxycycline with outpatient follow up with PMD - discussed with Dr. Sam -viral syndrome treated also with supportive care
--- NOTE | 2017-11-29 14:49 | CP.PCM.PN ---
Subjective - Date & Time of Evaluation Date of Evaluation: 11/29/17 Time of Evaluation: 06:45 - Subjective Subjective: Santo Reeves, PGY-1 Progress Note for Hospitalist Service Mr. Amezquita is a 42 year old M who reported no acute events overnight. No nausea, vomiting, abdominal pain, Objective - Vital Signs/Intake and Output Vital Signs (last 24 hours): Temp Pulse Resp BP Pulse Ox 98.5 F 70 20 110/80 97 11/29/17 12:00 11/29/17 12:00 11/29/17 12:00 11/29/17 12:00 11/29/17 06:00 - Medications Medications: Current Medications Acetaminophen (Tylenol 325mg Tab) 650 mg PO Q6H PRN PRN Reason: Pain, moderate (4-7) Last Admin: 11/28/17 02:22 Dose: 650 mg Acetaminophen (Tylenol 325mg Tab) 650 mg PO Q6H PRN PRN Reason: Fever >100.4 F Last Admin: 11/28/17 10:04 Dose: 650 mg Atorvastatin Calcium (Lipitor) 80 mg PO DIN [facility] Last Admin: 11/28/17 17:26 Dose: 80 mg Metronidazole (Flagyl) 500 mg in 100 mls @ 100 mls/hr IVPB Q8 [facility] PRN Reason: Protocol Last Admin: 11/29/17 14:32 Dose: 100 mls/hr Ceftriaxone Sodium (Rocephin 2 Gm Ivpb) 2 gm in 100 mls @ 100 mls/hr IVPB DAILY [facility] PRN Reason: Protocol Last Admin: 11/29/17 12:19 Dose: 100 mls/hr Ondansetron HCl (Zofran Inj) 4 mg IVP Q4H PRN PRN Reason: Nausea/Vomiting Pantoprazole Sodium (Protonix Inj) 40 mg IVP DAILY [facility] Last Admin: 11/29/17 12:19 Dose: 40 mg Sucralfate (Carafate Oral Susp) 1 gm PO 0630,1130,1630,2200 [facility] Last Admin: 11/29/17 12:19 Dose: 1 gm - Labs Labs: PT 11.9 SECONDS (9.4-12.5) 11/27/17 21:18 INR 1.00 (0.93-1.08) 11/27/17 21:18 APTT 25.0 Seconds (25.1-36.5) L 11/27/17 21:18
--- NOTE | 2017-11-29 14:56 | CP.PCM.DIS ---
<Santo Reeves - Last Filed: 11/29/17 17:02> Provider - Provider Date of Admission: 11/29/17 10:18 Attending physician: Lionel Sam MD Primary care physician: Kenan Couch MD Consults: Dr. Aquino, ID Time Spent in preparation of Discharge (in minutes): 45 Diagnosis - Discharge Diagnosis (1) Altered mental status Status: Resolved (2) Aseptic meningitis Status: Suspected (3) Dyslipidemia Status: Chronic (4) Gastritis Status: Chronic (5) H/O prostatectomy Status: Chronic Hospital Course - Lab Results Lab Results: Most Recent Lab Values WBC 4.1 10^3/ul (4.5-11.0) L D 11/29/17 05:00 RBC 4.19 10^6/uL (3.5-6.1) 11/29/17 05:00 Hgb 12.7 g/dL (14.0-18.0) L 11/29/17 05:00 Hct 36.3 % (42.0-52.0) L 11/29/17 05:00 MCV 86.6 fl (80.0-105.0) 11/29/17 05:00 MCH 30.3 pg (25.0-35.0) 11/29/17 05:00 MCHC 35.0 g/dl (31.0-37.0) 11/29/17 05:00 RDW 12.4 % (11.5-14.5) 11/29/17 05:00 Plt Count 167 10^3/uL (120.0-450.0) 11/29/17 05:00 MPV 8.6 fl (7.0-11.0) 11/29/17 05:00 Gran % 49.5 % (50.0-68.0) L 11/29/17 05:00 Lymph % (Auto) 38.0 % (22.0-35.0) H 11/29/17 05:00 Ceiba % (Auto) 11.8 % (1.0-6.0) H 11/29/17 05:00 Eos % (Auto) 0.5 % (1.5-5.0) L 11/29/17 05:00 Baso % (Auto) 0.2 % (0.0-3.0) 11/29/17 05:00 Gran # 2.02 (1.4-6.5) 11/29/17 05:00 Lymph # (Auto) 1.6 (1.2-3.4) 11/29/17 05:00 [place] # (Auto) 0.5 (0.1-0.6) 11/29/17 05:00 Eos # (Auto) 0.0 (0.0-0.7) 11/29/17 05:00 Baso # (Auto) 0.01 K/mm3 (0.0-2.0) 11/29/17 05:00 PT 11.9 SECONDS (9.4-12.5) 11/27/17 21:18 INR 1.00 (0.93-1.08) 11/27/17 21:18 APTT 25.0 Seconds (25.1-36.5) L 11/27/17 21:18 D-Dimer, Quantitative < 200 ng/mL (0-243) 11/27/17 21:18 pO2 33 mm/Hg (30-55) 11/28/17 03:00 VBG pH 7.39 (7.32-7.43) 11/28/17 03:00 VBG pCO2 46.0 (40-60) 11/28/17 03:00 VBG HCO3 27.8 mmol/l (21-28) 11/28/17 03:00 VBG Total CO2 29.2 mmol.L (22-28) H 11/28/17 03:00 VBG O2 Sat (Calc) 71.4 % (40-65) H 11/28/17 03:00 VBG Base Excess 2.2 mmol/L (0.0-2.0) H 11/28/17 03:00 VBG Potassium 3.6 mmol/L (3.6-5.2) 11/28/17 03:00 Sodium 138.0 mmol/L (132-148) 11/28/17 03:00 Chloride 106.0 mmol/L (98-107) 11/28/17 03:00 Glucose 105 mg/dl (75-110) 11/28/17 03:00 Lactate 0.9 mmol/L (0.7-2.1) 11/28/17 03:00 FiO2 21.0 % 11/28/17 03:00 Sodium 143 mmol/L (132-148) 11/29/17 07:30 Potassium 4.1 mmol/L (3.6-5.0) 11/29/17 07:30 Chloride 103 mmol/L (98-107) 11/29/17 07:30 Carbon Dioxide 29 mmol/L (21-33) 11/29/17 07:30 Anion Gap 14 (10-20) 11/29/17 07:30 BUN 8 mg/dL (7-21) 11/29/17 07:30 Creatinine 0.9 mg/dl (0.8-1.5) 11/29/17 07:30 Est GFR ( Amer) > 60 11/29/17 07:30 Est GFR (Non-Af Amer) > 60 11/29/17 07:30 Random Glucose 97 mg/dL (70-110) 11/29/17 07:30 Calcium 9.1 mg/dL (8.4-10.5) 11/29/17 07:30 Magnesium 2.0 mg/dL (1.7-2.2) 11/28/17 06:45 Total Bilirubin 0.4 mg/dL (0.2-1.3) 11/29/17 07:30 AST 17 U/L (17-59) 11/29/17 07:30 ALT 28 U/L (7-56) 11/29/17 07:30 Alkaline Phosphatase 58 U/L (38-126) 11/29/17 07:30 Troponin I < 0.01 ng/mL 11/27/17 21:18 C-Reactive Protein 37.20 mg/L (0.0-9.9) H 11/28/17 09:20 Total Protein 6.4 g/dL (5.8-8.3) 11/29/17 07:30 Albumin 3.7 g/dL (3.0-4.8) 11/29/17 07:30 Globulin 2.6 gm/dL 11/29/17 07:30 Albumin/Globulin Ratio 1.4 (1.1-1.8) 11/29/17 07:30 Triglycerides 89 mg/dL (35-160) 11/28/17 06:45 Cholesterol 158 mg/dL (130-200) 11/28/17 06:45 LDL Cholesterol Direct 98 mg/dL (0-129) 11/28/17 06:45 HDL Cholesterol 33 mg/dL (29-60) 11/28/17 06:45 Lipase 53 U/L (23-300) 11/27/17 21:18 Procalcitonin 0.51 NG/ML (0.19-0.49) H 11/28/17 09:20 TSH 3rd Generation 0.89 mIU/mL (0.46-4.68) 11/28/17 06:45 Venous Blood Potassium 3.6 mmol/L (3.6-5.2) 11/28/17 03:00 Urine Color Yellow (YELLOW) 11/27/17 23:35 Urine Appearance Clear (CLEAR) 11/27/17 23:35 Urine pH 6.0 (4.7-8.0) 11/27/17 23:35 Ur Specific [place] 1.020 (1.005-1.035) 11/27/17 23:35 Urine Protein Negative mg/dL (<30 mg/dL) 11/27/17 23:35 Urine Glucose (UA) Negative mg/dL (NEGATIVE) 11/27/17 23:35 Urine Ketones Negative mg/dL (NEGATIVE) 11/27/17 23:35 Urine Blood Negative (NEGATIVE) 11/27/17 23:35 Urine Nitrate Negative (NEGATIVE) 11/27/17 23:35 Urine Bilirubin Negative (NEGATIVE) 11/27/17 23:35 Urine Urobilinogen 0.2 E.U./dL (<1 E.U./dL) 11/27/17 23:35 Ur Leukocyte Esterase Negative Gopi/uL (NEGATIVE) 11/27/17 23:35 Urine Opiates Screen Negative (NEGATIVE) 11/27/17 23:35 Urine Methadone Screen Negative (NEGATIVE) 11/27/17 23:35 Ur Barbiturates Screen Negative (NEGATIVE) 11/27/17 23:35 Ur Phencyclidine Scrn Negative (NEGATIVE) 11/27/17 23:35 Ur Amphetamines Screen Negative (NEGATIVE) 11/27/17 23:35 U Benzodiazepines Scrn Negative (NEGATIVE) 11/27/17 23:35 U Oth Cocaine Metabols Negative (NEGATIVE) 11/27/17 23:35 U Cannabinoids Screen Negative (NEGATIVE) 11/27/17 23:35 Influenza Typ A,B (EIA) Negative for flu a/b (NEGATIVE) 11/28/17 14:04 - Hospital Course Hospital Course: Santo Reeves PGY-1 Discharge Summary for Hospitalist Service Mr. Amezquita is a 42 year old Male who was admitted for abdominal pain, nausea, headaches, vomiting and a period of unresponsiveness and to rule out any form of meningitis. Patient was worked up for sepsis, for which patient was given IV Vancomycin, Rocephin, and Flagyl. Patient's symptoms likely due to acute systemic viral syndrome and lethargy. Blood cultures negative. CXR and CT head were negative. Antibiotics were changed to PO Vantin and PO Doxycycline with outpatient follow up in home country of [place]. - Date & Time of H&P Date of H&P: 11/29/17 Time of H&P: 16:22 Discharge Exam - Head Exam Head Exam: ATRAUMATIC, NORMAL INSPECTION, NORMOCEPHALIC - Eye Exam Eye Exam: EOMI, Normal appearance, PERRL Pupil Exam: NORMAL ACCOMODATION, PERRL - ENT Exam ENT Exam: Mucous Membranes Dry - Neck Exam Neck exam: Normal Inspection - Respiratory Exam Respiratory Exam: NORMAL BREATHING PATTERN. absent: Accessory Muscle Use, Chest Wall Tenderness, Respiratory Distress - Cardiovascular Exam Cardiovascular Exam: RRR, +S1, +S2 - GI/Abdominal Exam GI & Abdominal Exam: Normal Bowel Sounds, Tenderness (mild). absent: Guarding, Rebound - Extremities Exam Extremities exam: normal inspection - Back Exam Back exam: FULL ROM. absent: CVA tenderness (L), CVA tenderness (R) - Neurological Exam Neurological exam: Alert, Oriented x3 - Psychiatric Exam Psychiatric exam: Normal Affect, Normal Mood Discharge Plan - Discharge Medications Prescriptions: Cefpodoxime [Vantin] 200 mg PO BID #10 tab RX: Doxycycline Hyclate 100 mg PO BID #10 capsule - Follow Up Plan Condition: STABLE Disposition: HOME/ ROUTINE Instructions: Gastritis, Enders Diet, Lactose-Controlled Diet, Aseptic Meningitis (DC), Viral Gastroenteritis, Adult (DC), Cardioversion (DC), Syncope (DC) Additional Instructions: Patient must follow up with PMD and medical policy specialist in [place]. Finish course of antibiotics as written. Maintain oral hydration. Go to office/ER if symptoms return/worsen or for any other concerns. Referrals: Kenan Couch MD [Primary Care Provider] - Vahid Flanagan MD [Staff Provider] - Ian Baptiste MD [Staff Provider] - Jeison Aquino MD [Staff Provider] - <Lionel Sam - Last Filed: 11/29/17 17:08> Provider - Provider Date of Admission: 11/29/17 10:18 Attending physician: Lionel Sam MD Primary care physician: Kenan Couch MD Hospital Course - Lab Results Lab Results: Most Recent Lab Values WBC 4.1 10^3/ul (4.5-11.0) L D 11/29/17 05:00 RBC 4.19 10^6/uL (3.5-6.1) 11/29/17 05:00 Hgb 12.7 g/dL (14.0-18.0) L 11/29/17 05:00 Hct 36.3 % (42.0-52.0) L 11/29/17 05:00 MCV 86.6 fl (80.0-105.0) 11/29/17 05:00 MCH 30.3 pg (25.0-35.0) 11/29/17 05:00 MCHC 35.0 g/dl (31.0-37.0) 11/29/17 05:00 RDW 12.4 % (11.5-14.5) 11/29/17 05:00 Plt Count 167 10^3/uL (120.0-450.0) 11/29/17 05:00 MPV 8.6 fl (7.0-11.0) 11/29/17 05:00 Gran % 49.5 % (50.0-68.0) L 11/29/17 05:00 Lymph % (Auto) 38.0 % (22.0-35.0) H 11/29/17 05:00 Ceiba % (Auto) 11.8 % (1.0-6.0) H 11/29/17 05:00 Eos % (Auto) 0.5 % (1.5-5.0) L 11/29/17 05:00 Baso % (Auto) 0.2 % (0.0-3.0) 11/29/17 05:00 Gran # 2.02 (1.4-6.5) 11/29/17 05:00 Lymph # (Auto) 1.6 (1.2-3.4) 11/29/17 05:00 [place] # (Auto) 0.5 (0.1-0.6) 11/29/17 05:00 Eos # (Auto) 0.0 (0.0-0.7) 11/29/17 05:00 Baso # (Auto) 0.01 K/mm3 (0.0-2.0) 11/29/17 05:00 PT 11.9 SECONDS (9.4-12.5) 11/27/17 21:18 INR 1.00 (0.93-1.08) 11/27/17 21:18 APTT 25.0 Seconds (25.1-36.5) L 11/27/17:18 D-Dimer, Quantitative < 200 ng/mL (0-243) 11/27/17 21:18 pO2 33 mm/Hg (30-55) 11/28/17 03:00 VBG pH 7.39 (7.32-7.43) 11/28/17 03:00 VBG pCO2 46.0 (40-60) 11/28/17 03:00 VBG HCO3 27.8 mmol/l (21-28) 11/28/17 03:00 VBG Total CO2 29.2 mmol.L (22-28) H 11/28/17 03:00 VBG O2 Sat (Calc) 71.4 % (40-65) H 11/28/17 03:00 VBG Base Excess 2.2 mmol/L (0.0-2.0) H 11/28/17 03:00 VBG Potassium 3.6 mmol/L (3.6-5.2) 11/28/17 03:00 Sodium 138.0 mmol/L (132-148) 11/28/17 03:00 Chloride 106.0 mmol/L (98-107) 11/28/17 03:00 Glucose 105 mg/dl (75-110) 11/28/17 03:00 Lactate 0.9 mmol/L (0.7-2.1) 11/28/17 03:00 FiO2 21.0 % 11/28/17 03:00 Sodium 143 mmol/L (132-148) 11/29/17 07:30 Potassium 4.1 mmol/L (3.6-5.0) 11/29/17 07:30 Chloride 103 mmol/L (98-107) 11/29/17 07:30 Carbon Dioxide 29 mmol/L (21-33) 11/29/17 07:30 Anion Gap 14 (10-20) 11/29/17 07:30 BUN 8 mg/dL (7-21) 11/29/17 07:30 Creatinine 0.9 mg/dl (0.8-1.5) 11/29/17 07:30 Est GFR ( Amer) > 60 11/29/17 07:30 Est GFR (Non-Af Amer) > 60 11/29/17 07:30 Random Glucose 97 mg/dL (70-110) 11/29/17 07:30 Calcium 9.1 mg/dL (8.4-10.5) 11/29/17 07:30 Magnesium 2.0 mg/dL (1.7-2.2) 11/28/17 06:45 Total Bilirubin 0.4 mg/dL (0.2-1.3) 11/29/17 07:30 AST 17 U/L (17-59) 11/29/17 07:30 ALT 28 U/L (7-56) 11/29/17 07:30 Alkaline Phosphatase 58 U/L (38-126) 11/29/17 07:30 Troponin I < 0.01 ng/mL 11/27/17 21:18 C-Reactive Protein 37.20 mg/L (0.0-9.9) H 11/28/17 09:20 Total Protein 6.4 g/dL (5.8-8.3) 11/29/17 07:30 Albumin 3.7 g/dL (3.0-4.8) 11/29/17 07:30 Globulin 2.6 gm/dL 11/29/17 07:30 Albumin/Globulin Ratio 1.4 (1.1-1.8) 11/29/17 07:30 Triglycerides 89 mg/dL (35-160) 11/28/17 06:45 Cholesterol 158 mg/dL (130-200) 11/28/17 06:45 LDL Cholesterol Direct 98 mg/dL (0-129) 11/28/17 06:45 HDL Cholesterol 33 mg/dL (29-60) 11/28/17 06:45 Lipase 53 U/L (23-300) 11/27/17 21:18 Procalcitonin 0.51 NG/ML (0.19-0.49) H 11/28/17 09:20 TSH 3rd Generation 0.89 mIU/mL (0.46-4.68) 11/28/17 06:45 Venous Blood Potassium 3.6 mmol/L (3.6-5.2) 11/28/17 03:00 Urine Color Yellow (YELLOW) 11/27/17 23:35 Urine Appearance Clear (CLEAR) 11/27/17 23:35 Urine pH 6.0 (4.7-8.0) 11/27/17 23:35 Ur Specific [place] 1.020 (1.005-1.035) 11/27/17 23:35 Urine Protein Negative mg/dL (<30 mg/dL) 11/27/17 23:35 Urine Glucose (UA) Negative mg/dL (NEGATIVE) 11/27/17 23:35 Urine Ketones Negative mg/dL (NEGATIVE) 11/27/17 23:35 Urine Blood Negative (NEGATIVE) 11/27/17 23:35 Urine Nitrate Negative (NEGATIVE) 11/27/17 23:35 Urine Bilirubin Negative (NEGATIVE) 11/27/17 23:35 Urine Urobilinogen 0.2 E.U./dL (<1 E.U./dL) 11/27/17 23:35 Ur Leukocyte Esterase Negative Gopi/uL (NEGATIVE) 11/27/17 23:35 Urine Opiates Screen Negative (NEGATIVE) 11/27/17 23:35 Urine Methadone Screen Negative (NEGATIVE) 11/27/17 23:35 Ur Barbiturates Screen Negative (NEGATIVE) 11/27/17 23:35 Ur Phencyclidine Scrn Negative (NEGATIVE) 11/27/17 23:35 Ur Amphetamines Screen Negative (NEGATIVE) 11/27/17 23:35 U Benzodiazepines Scrn Negative (NEGATIVE) 11/27/17 23:35 U Oth Cocaine Metabols Negative (NEGATIVE) 11/27/17 23:35 U Cannabinoids Screen Negative (NEGATIVE) 11/27/17 23:35 Influenza Typ A,B (EIA) Negative for flu a/b (NEGATIVE) 11/28/17 14:04 Attending/Attestation - Attestation I have personally seen and examined this patient.: Yes I have fully participated in the care of the patient.: Yes I have reviewed all pertinent clinical information, including history, physical exam and plan: Yes Notes (Text): 11/29/17 17:05 Medical record note made by the resident after discussion with my direction and input after the patient was personally seen and examined by me. I have reviewed the chart and agree that the record accurately reflects by personal performance of the history, physical exam, data review, and medical decision-making, in the course for the patient. I have also personally directed the plan of care. Patient is feeling better.He is afebrile.Blood cultures are negative for any growth.There is no nausea or vomiting.Abdominal examination is benign.Patient symtoms were likely due to aseptic meningitis or viral syndrome. Patient case was discussed with ID and decision has been made to discharge patient on oral Doxycycline and Vantin . Management plan was discussed in detail with patient and . Education was provided.
[2017-11-29 17:40] VITALS: BP 119/84; PULSE 93; TEMP 98.4
--- NOTE | 2017-11-30 09:03 | CARD ---
APPROVED REPORT Date of service: 11/29/2017 EXAM: Two-dimensional and M-mode echocardiogram with Doppler and color Doppler. Other Information Quality : GoodRhythm : INDICATION Syncope 2D DIMENSIONS Left Atrium (2D)3.6 (1.6-4.0cm)IVSd0.9 (0.7-1.1cm) LVDd3.6 (3.9-5.9cm)PWd0.9 (0.7-1.1cm) LVDs2.7 (2.5-4.0cm)FS (%) 26.6 % LVEF (%)53.0 (>50%) M-Mode DIMENSIONS Aortic Root2.30 (2.2-3.7cm)Aortic Cusp Exc.2.00 (1.5-2.0cm) Aortic Valve AoV Peak Rmobphfj796.0cm/s Mitral Valve MV E Przfmgxi49.1cm/sMV A Wqtfzzwa66.2cm/sE/A ratio1.3 TDI E/Lateral E'0.0E/Medial E'0.0 Tricuspid Valve TR Peak [id number] [id number] Peak Gr.18mmHg [id number] LEFT VENTRICLE The left ventricle is normal size. There is normal left ventricular wall thickness. The left ventricular function is normal. The left ventricular ejection fraction is within the normal range. There is normal LV segmental wall motion. RIGHT VENTRICLE The right ventricle is normal size. ATRIA The left atrium size is normal. The right atrium size is normal. The interatrial septum is intact with no evidence for an atrial septal defect. AORTIC VALVE The aortic valve is normal in structure. MITRAL VALVE The mitral valve is normal in structure. Mitral regurgitation is trace. TRICUSPID VALVE The tricuspid valve is normal in structure. There is trace tricuspid regurgitation. PULMONIC VALVE The pulmonic valve is not well visualized. GREAT VESSELS The aortic root is normal in size. PERICARDIAL EFFUSION There is no pleural effusion. <Conclusion> The left ventricle is normal size. There is normal left ventricular wall thickness. The left ventricular function is normal.
== END 2017-11-29 17:45 | disposition home or self-care (01) ==
LOC: ED 20:57 → ERH 23:52 → 2RNO 11-28 01:47 → OBSVTOIN 11-29 10:18 → INTOOBSV 11-29 10:18
PROVIDERS: ADMIT Internal Medicine; ATTEND Internal Medicine
DX: G03.0 Nonpyogenic meningitis (principal); B34.9 Viral infection, unspecified; K52.9 Noninfective gastroenteritis and colitis, unspecified; R00.0 Tachycardia, unspecified; E78.5 Hyperlipidemia, unspecified; K29.50 Unspecified chronic gastritis without bleeding; J45.909 Unspecified asthma, uncomplicated; F17.210 Nicotine dependence, cigarettes, uncomplicated; Z90.79 Acquired absence of other genital organ(s)
CPT/HCPCS: 36415; 70450; 71045; 74176; 80053; 80061; 80324; 80345; 80346; 80349; 80353; 80358; 80361; 81003; 82803; 83690; 83735; 83992; 84145; 84443; 84484; 85025; 85378; 85610; 85730; 86140; 87040; 87086; 87804; 93005; 93306; 96374; 99285; C9113; G0378; J0696; J2405; J3475; J7030; J7040